=== PATIENT | female | born 2000 | race African-American/Black ===

== ENCOUNTER 2019-04-29 13:46 | Emergency (ER) | payer OTHER ==
[~2019-04-29] VITALS: Ht 157.5 cm; Wt 122.9 kg
== END 2019-04-29 19:55 | disposition home or self-care (01) ==
LOC: ER 13:46
DX: R10.2 Pelvic and perineal pain (principal)

== ENCOUNTER 2023-04-04 08:14 | Outpatient (CLI) | payer OTHER | END 2023-04-04 14:52 | disposition home or self-care (01) | LOC: LAB 08:14 | PROVIDERS: ATTEND Internal Medicine Hematology & Oncology | DX: D50.8 Other iron deficiency anemias (principal); I10 Essential (primary) hypertension; R74.02 Elevation of levels of lactic acid dehydrogenase [LDH]; K76.89 Other specified diseases of liver; E11.9 Type 2 diabetes mellitus without complications; E59 Dietary selenium deficiency; E78.2 Mixed hyperlipidemia; E03.8 Other specified hypothyroidism; D68.8 Other specified coagulation defects; D69.1 Qualitative platelet defects; D66 Hereditary factor VIII deficiency; D68.01 Von Willebrand disease, type 1; D68.9 Coagulation defect, unspecified; D50.0 Iron deficiency anemia secondary to blood loss (chronic); N93.8 Other specified abnormal uterine and vaginal bleeding; R87.820 Cervical low risk human papillomavirus (HPV) DNA test positive ==

== ENCOUNTER 2023-04-04 09:46 | Outpatient (CLI) | payer OTHER | END 2023-04-04 09:55 | disposition home or self-care (01) | LOC: SONOGRAMA 09:46 | PROVIDERS: ATTEND Internal Medicine Hematology & Oncology | DX: E04.2 Nontoxic multinodular goiter (principal) ==